=== PATIENT | female | born 1965 | race Caucasian/White ===

== ENCOUNTER → 2024-09-15 12:41 | Outpatient (REF) | payer OTHER, SELFPAY | LOC: HWWDC 12:41 | PROVIDERS: ATTENDING PHYSICIAN Obstetrics & Gynecology Gynecology; FAMILY PHYSICIAN Internal Medicine | DX: Z12.31 Encounter for screening mammogram for malignant neoplasm of breast (principal) | CPT/HCPCS: 77063; 77067 ==

== ENCOUNTER 2025-08-24 11:21 | Emergency (ER) | payer OTHER, SELFPAY ==
[2025-08-24 11:22] VITALS: BP 154/101
--- NOTE | 2025-08-24 12:04 | EDRN ---
Wound cleaned and dressed by this RN
--- NOTE | 2025-08-24 13:57 | ED.GENMED ---
History of Present Illness
General
Chief Complaint: Skin Surface Trauma
Source: patient
Exam Limitations: none
Time Seen by Provider: 08/24/25 13:46
Nursing documentation reviewed up to this point in time: agreed with
History of Present Illness
History of Present Illness:
The patient is a 60-year-old female who presents to the emergency department with a laceration to her left lower leg. Patient states she was walking into her garage when she had a misstep and caught her leg on a hanging beach chair. She did
immediately clean wound out with soap and water however was unable to get wound stop bleeding at home and visit to the emergency department.
She denies any other associated injuries. No numbness/tingling in left foot. She has been weightbearing without difficulty
Her last tetanus shot is unknown.
Past History
Past History
ED Past Medical History: None
ED Past Surgical History: Cholecystectomy
Social History
Tobacco: Non-smoker
Alcohol: None
Living: with family
Family History
Family History: Other (Mother with melanoma. Great grandmother with colon cancer. Mother with diverticulosis)
Review of Systems
Review of Systems
Allergies reviewed?: Yes
All Other Systems: ROS reviewed and negative except as documented in HPI and ROS
Phy Exam
Physical Exam
Physical Exam:
Vitals: Patient's vital signs are stable. Afebrile
General: Patient is well appearing, no acute distress
Skin: Approximately 5cm superficial linear laceration to left lateral lower leg just proximal to ankle. Minimal bleeding.
Head: Normocephalic, atraumatic
Throat: Protecting airway
Neck: Normal ROM, no cervical spine tenderness
Cardiac: Regular rate
Pulm: No apparent respiratory distress
Abdomen: Nondistended
Extremities: Laceration to left lower leg as above. LLE neurovascularly intact with normal sensation and palpable DP pulse. No involvement of ankle joint.
Neuro: Grossly intact
Psychiatric: Normal affect.
Course
Orders/Labs/Results
Orders:
Orders
08/24/25 13:56
Tetanus/Diphth/Acelpertussis [Adacel] 0.5 ml IM .ONCE ONE
Vital Signs
Initial and Last Documented VS:
Initial Vital Signs
Temp Pulse Resp BP Pulse Ox
98.1 F 119 20 154/101 97
08/24/25 11:22 08/24/25 11:22 08/24/25 11:22 08/24/25 11:22 08/24/25 11:22
Last Documented Vital Signs
Temp Pulse Resp BP Pulse Ox
98.1 F 96 18 143/79 97
08/24/25 11:22 08/24/25 14:25 08/24/25 14:25 08/24/25 14:25 08/24/25 14:25
Procedures
Laceration Closure
Left Lower Leg:
Status of Wound: clean
Size of Wound in cm: 5
Description of Wound Edges: sharp and surrounded by abrasion
Preparation: cleaned with saline
Anesthesia: 1% Lidocaine with epi
Revision/Debridement: routine- no revision
Wound exploration: explored to base- no FB
Skin Closure Material: 4-0 nylon
Number of sutures: 4
MDM/Problems Addressed
Differential Diagnosis Includes:
Not limited to: laceation, abrasion, etc
MDM/Problems Addressed:
60 y.o F presenting with a superficial laceration to the left lower leg. On examination, the wound was approximately 5cm, clean, with minimal bleeding, and without signs of deep tissue involvement, foreign body, or neurovascular compromise.
The wound was thoroughly irrigated with normal saline. No signs of infection, tendon, or muscle exposure were noted. The laceration was closed using 4, 4-0 nylon simple interrupted sutures, achieving good approximation of the skin edges.
Tetanus booster updated.
Discussed proper wound care, signs of infection and advised to return for suture removal in 10 days at PCP, urgent care, or ED.
Patient tolerated the procedure well and was discharged in stable condition.
Chronic conditions affecting care:
N/A
Acute Exacerbation and/or Progression of Chronic Illness:
N/A
*Pulse Oximetry
SaO2: 97
Oxygen Mode of Delivery: Room air
Patient hypoxic: no
*EKG
Interpreted by ED Provider?: NA
*Youth Care Specialist Interpretation
Rate: Youth Care Specialist- N/A
*Critical Care Note
Total Time (30-74mins, 75-104mins- exclusive of procedures): Not Applicable
ED Attending Note
-
Portions of this chart may have been created with voice recognition software.� Occasional wrong word or��sound alike� substitutions may have occurred due to the inherent limitations of voice recognition software.
Discharge Plan
Departure
Patient Disposition: Home (Routine Discharge)
Date of Disposition: 08/24/25
Time of Disposition: 14:22
Patient with high blood pressure during this ER visit?: Yes
Discharge Problem:
Laceration of left lower leg
Instructions: Wound Care (DC), Laceration Repair With Stitches (DC), BLOOD PRESSURE
Prescriptions:
No Action
No Current Medications
0
Referrals:
Jd Tompkins MD [Family Provider, Internal Medicine] - Follow up in 10 days
Activity Restrictions/Additional Instructions:
RETURN TO THE EMERGENCY DEPARTMENT WITH ANY FEVER, CHILLS, NUMBNESS/TINGLING LEFT LOWER LEG, OR ANY SIGNS OF INFECTION
- Your laceration was closed with 4 sutures today in the emergency department. These should be removed in 10 to 12 days. You can see your primary care, urgent care, or emergency department for suture removal.
- Please keep wound clean and dry. Wash gently with soap and water. Keep covered until stitches are removed.
- You can take Tylenol as needed for pain
Monitor your symptoms closely and return to the emergency department with any acute worsening/new symptoms or any other concerns
Interventions
Interventions:
*Risk Screen - Suicide Last Done: 08/24/25 11:22
*General Assessment Last Done: 08/24/25 11:22
*Neglect/Abuse Screening Last Done: 08/24/25 12:03
*ED- Fall Risk Assessment Last Done: 08/24/25 12:03
*ED COVID-19 Vaccine History Last Done: 08/24/25 12:03
*ED Influenza Vaccine History Last Done: 08/24/25 12:03
*Nursing Disposition Last Done: 08/24/25 14:38
ED-Skin Assessment Last Done: 08/24/25 12:03
Discharge Date and Time
Discharge Date/Time: 08/24/25 14:38
Print Language: GERMAN
[2025-08-24] MEDS: ADACEL 0.5 ML IM (14:20)
[2025-08-24 14:25] VITALS: BP 143/79
== END 2025-08-24 14:38 | disposition home or self-care (01) ==
LOC: EMR 11:21
PROVIDERS: EMERGENCY PHYSICIAN Emergency Medicine; FAMILY PHYSICIAN Internal Medicine
DX: S81.812A Laceration without foreign body, left lower leg, initial encounter (principal); W22.8XXA Striking against or struck by other objects, initial encounter; Y93.01 Activity, walking, marching and hiking; Y92.008 Other place in unspecified non-institutional (private) residence as the place of occurrence of the external cause; Z23 Encounter for immunization
CPT/HCPCS: 90471; 12002; 99282; 90715

== ENCOUNTER → 2025-09-17 09:49 | Outpatient (REF) | payer OTHER, SELFPAY | LOC: HWWDC 09:49 | PROVIDERS: ATTENDING PHYSICIAN Obstetrics & Gynecology Gynecology; FAMILY PHYSICIAN Internal Medicine | DX: Z12.31 Encounter for screening mammogram for malignant neoplasm of breast (principal) | CPT/HCPCS: 77063; 77067 ==

== ENCOUNTER → 2025-09-29 09:36 | Outpatient (REF) | payer OTHER, SELFPAY | LOC: WDC 09:36 | PROVIDERS: ATTENDING PHYSICIAN Obstetrics & Gynecology Gynecology; FAMILY PHYSICIAN Internal Medicine | DX: R92.8 Other abnormal and inconclusive findings on diagnostic imaging of breast (principal) | CPT/HCPCS: 76642 ==